=== PATIENT | female | born 1980 | race Caucasian/White ===

== ENCOUNTER → 2022-07-11 | Outpatient (CLI) | payer BC ==
--- NOTE | 2022-07-11 09:15 | Diagnostic Imaging Report ---
INDICATION: Abdominal pain COMPARISON: None available TECHNIQUE: Two radiographs of the abdomen dated 07/11/2022. FINDINGS: The minimally visualized lung bases are clear. Surgical clips are present within the right upper abdomen. Punctate hyperdensities are seen overlying the right mid abdomen, not definitely overlying the right renal shadow. Nonobstructive bowel gas pattern. No free air. Tubular lucency is noted overlying the midline lower pelvis. No acute osseous abnormality. IMPRESSION: Punctate hyperdensities overlying the right mid abdomen, not definitely overlying the right renal shadow. These are nonspecific though favored to simply relate to enteric contents. Nonobstructive bowel gas pattern without free air. Tubular lucency overlying the midline lower pelvis. This could simply relate to gas within the rectum, though this could also relate to a tampon which is in place. Dictated by: Dictated on workstation # [id number]
== END ==
LOC: RAD FS 08:18
PROVIDERS: ATTEND Registered Nurse Emergency
DX: K59.00 Constipation, unspecified (principal)
CPT/HCPCS: 74019